=== PATIENT | female | born 1995 | race Two or more races ===

== ENCOUNTER 2016-09-04 13:43 | Emergency (ER) | payer BC, SELFPAY ==
--- NOTE | ~2016-09-04 | ER ---
PATIENT'S NAME: DAVID MCKNIGHT [facility] AGE: 21 Y [address] ROOM: [place] [id number] LOCATION: ED ADMIT DATE: 09/04/2016 ER/Outpatient Report DISCHARGE DATE: 09/04/2016 FAMILY PHYSICIAN: Danilo Lema MD ATTENDING PHYSICIAN: Peyman Murrell Time of Arrival: 1343 hours. Time of Exams: 1343 hours. CHIEF COMPLAINT: Migraine headache. HISTORY OF PRESENT ILLNESS: The patient states she was awakened at 4 o'clock this morning with a headache. States she has never had a headache like this before. Reports she feels confused. She has been nauseated, has vomited. Feels extremely dizzy. Denies any vision changes. States she was feeling fine yesterday. Has not had a fever or chills. ALLERGIES: NO KNOWN ALLERGIES. MEDICATIONS: No current medications. PAST MEDICAL HISTORY: Benign. PAST SURGICAL HISTORY: Tonsillectomy and left lower leg extremity fracture. SOCIAL HISTORY: She denies use of tobacco, drugs, or alcohol. REVIEW OF SYSTEMS: All negative other than those mentioned in the HPI. PHYSICAL EXAMINATION: VITAL SIGNS: She states she is 5 feet 4 inches. She weighed 156.6 kg. Blood pressure is 177/88, pulse of 88, respirations 16, temperature of 98.2, and O2 saturation was 99% on room air. GENERAL: She is awake, alert, and oriented to person and place. She is thrashing around on the bed. Has inappropriate behavior, but moving all extremities. HEENT: Pupils are equal reactive to light. Extraocular movement is intact. PATIENT'S NAME: DAVID MCKNIGHT [facility] AGE: 21 Y [address] ROOM: [place] [id number] LOCATION: ED ADMIT DATE: 09/04/2016 ER/Outpatient Report DISCHARGE DATE: 09/04/2016 FAMILY PHYSICIAN: Danilo Lema MD ATTENDING PHYSICIAN: Peyman Murrell She does follow directions. LUNG: Sounds are clear throughout. HEART: Regular rate and rhythm. EXTREMETIES: Moves all extremeties strong and equally. EMERGENCY DEPARTMENT COURSE: Saline lock was initiated. The patient was given Zofran 4 mg ODT. She was also given fluids of normal saline, Toradol 30 mg IV, and Benadryl 25 mg IV. CBC shows a white count of 12.1, hemoglobin 13.6, and hematocrit of 41.3. Chem panel within normal limits. CT of the head was completed. Radiologist reports is negative. After the medications, the patient was much calmer, able to do more thoroughly evaluation. She is awake, alert, and oriented x4. Her skin is pink, warm, and dry. Respirations are even and nonlabored. Pupils are equal reactive to light. Extraocular movement is intact. Oropharynx is clear. Neck is supple. No lymphadenopathy. Lungs continue to be clear. Heart is regular rate and rhythm. IMPRESSION: Headache. PLAN: Home, rest, and fluids. Prescription was written for Zofran for nausea. If the headache returns or symptoms worsen in the next 2-3 days, she is to contact her primary provider or return to the ER. Her and her mother verbalized understanding. ALVARADO ENG APRN FOR DO MICKI CUEVAS/liz /[id number] d: 09/05/16 0150 t: 09/08/16 0652, OUTPATIENT REPORT
[2016-09-04 14:29] LABS: BASOPHIL % 0.3 %; EOSINOPHIL % 0.3 %; HEMATOCRIT 41.3 % (33.0-46.0); HEMOGLOBIN 13.6 g/dL (11.0-15.0); IMMATURE GRANULOCYTE # 0.1 K/uL (0.0-0.3); IMMATURE GRANULOCYTE % 0.6 %; LYMPHOCYTE # 2.2 K/uL (0.8-4.0); MCH 27.7 pg (27.0-34.0); MCHC 32.9 gm/dL (32.0-36.5); MCV 84.1 fl (83.0-98.0); MONOCYTE # 0.7 K/uL (0.0-1.0); MONOCYTE % 5.9 %; MPV 10.5 fl (9.4-12.4); NEUTROPHIL # (ANC) 9.1 K/uL (1.8-7.8); NEUTROPHIL % 74.9 %; NRBC % 0 /100WBC (0-0.00); PLATELET COUNT 329 K/uL (150-450); RBC 4.91 M/uL (3.50-5.00); RDW-CV 12.7 % (11.9-14.6); WBC 12.1 K/uL (4.0-11.0)
[2016-09-04 14:45] LABS: ALBUMIN 3.4 gm/dL (3.5-5.0); ALK PHOS 78 IU/L (33-138); ALT 28 IU/L (12-78); ANION GAP 16.6 (10.0-19.0); AST 16 IU/L (10-40); BLOOD UREA NITROGEN 12 mg/dL (6-24); CALCIUM 8.8 mg/dL (8.5-10.5); CHLORIDE 109 mMol/L (96-110); CO2 19 mMol/L (22-32); CREATININE 0.8 mg/dL (0.5-1.1); ESTIMATED GFR (MDRD EQUATION) > 60; POTASSIUM 3.6 mMol/L (3.7-5.1); SODIUM 141 mMol/L (135-145); TOTAL BILIRUBIN 0.2 mg/dL (0.0-1.5); TOTAL PROTEIN 8.2 g/dL (6.0-8.4)
[2016-10-12] MEDS ORDERED: EXCEDRIN MIGRA1 EACH PO (13:26)
== END 2016-09-04 15:27 | disposition disaster alternative care site (69) ==
LOC: GMED 13:43
PROVIDERS: Nurse Practitioner Family
DX: R51 Headache (principal); Z90.49 Acquired absence of other specified parts of digestive tract
CPT/HCPCS: J1200; J1885; J7030

== ENCOUNTER → 2016-10-12 | Day surgery (SDC) | payer BC, SELFPAY ==
[~2016-10-12] VITALS: Ht 162.6 cm; Wt 154.4 kg
[~2016-10-12] MED LIST: EXCEDRIN MIGRA1 EACH PO
== END | disposition disaster alternative care site (69) ==
LOC: GPOC 12:00 → GSDC 13:15
PROC: 009U3ZZ Drainage of Spinal Canal, Percutaneous Approach (ICD-10-PCS; principal; 2016-10-12)
DX: R51 Headache (principal); H47.10 Unspecified papilledema; H53.9 Unspecified visual disturbance; R11.2 Nausea with vomiting, unspecified; Z98.890 Other specified postprocedural states